=== PATIENT | male | born 1995 | race African-American/Black ===

== ENCOUNTER 2017-12-08 17:58 | Emergency (ER) | payer SELFPAY ==
--- NOTE | 2017-12-08 18:03 | ED Physician Documentation ---
Upper Extremity Injury - HISTORIAN Historian: patient - HPI Stated Complaint: bleeding hand Chief Complaint: Hand Injury Additional Information: Piece of dirty metal fell off refrigerator onto left hand and then he fell onto hand. 4th finger tingles. Unknown last tetanus. Onset: just prior to arrival Where: home - ROS CONST: no problems - PAST HX Past History: none, Rt handed Allergies/Adverse Reactions: Allergies Allergy/AdvReac Type Severity Reaction Status Date / Time No Known Allergies Allergy Verified 12/08/17 18:05 Home Medications: Ambulatory Orders Medication Instructions Recorded NK [NK] 12/08/17 - SOCIAL HX Smoking History: cigarettes (1.5 PPD) Alcohol Use: none (denies) Drug Use: marijuana - FAMILY HX Family History: other (adopted, unknown) - VITAL SIGNS Vital Signs: Vital Signs Temp Pulse Resp BP Pulse Ox 87 17 99 12/08/17 17:58 12/08/17 17:58 12/08/17 17:58 - REVIEWED ASSESSMENTS Nursing Assessment Reviewed: Yes Vitals Reviewed: Yes Progress - Progress Progress: 1833, discussed pt with Dr. Gordon Ratliff, who will see pt in the morning in his office. Pt received tetanus and 1 GM IM rocephin. Report Submission Date: Dec 08, 2017 6:44:23 PM CDT Patient Study Name: NAZARIO CAMPBELL Date: Dec 08, 2017 6:04:34 PM CDT Modality Type: DX Gender: M Description: UPPER EXTREMITY : 89 Institution: [facility] Physician: JENNIFER HILL - ER Left hand, 3 views HISTORY Injury. FINDINGS Comminuted fracture of the proximal third metacarpal is present. There is no dislocation or abnormal bone destruction. Remainder of the osseous, joint and soft tissue structures are normal. IMPRESSION Third metacarpal fracture. Electronically signed on Dec 08, 2017 6:44:23 PM CDT by: Allen Byrnes ED Results Lab/Radiology - Orders Orders: ED Orders Category Date Time Status Cleanse with NS and Chlorhexid 1T Care 12/08/17 18:06 Active HAND 3 VIEWS OR MORE [RAD] Stat Exams 12/08/17 Taken Diph,Pertuss(Acell),Tet Vac/Pf [Adacel] Med 12/08/17 18:01 Discontinued 0.5 ml IM .ONCE ONE Lidocaine 1% 5ml(IM or SUTURE) [Xylocaine] Med 12/08/17 18:21 Discontinued 50 mg IJ NOW ONE cefTRIAXone SODIUM [Rocephin] Med 12/08/17 18:21 Discontinued 1 gm IM NOW ONE Upper Extremity Injury Physic - Physical Exam General Appearance: alert, mild distress Hand: swelling (left hand with 2.5 cm diameter sub dermal bleed, 0.5 cm elevation, central puncture 3x4 mm. Full active ROM. No discoloration) Wrist: normal inspection (L radial pulse 2+) Elbow/Forearm: normal inspection, no evidence of injury Shoulder: no evidence of injury Neuro/Vascular/Tendon: no vascular compromise, motor nml, sensation nml Skin: warm,dry Head/ENT: nml inspection Neck/Back: nml inspection Resp/CVS: no resp. distress Discharge Clincal Impression: Open fracture metacarpal shaft Qualifiers: Encounter type: initial encounter Metacarpal bone: third Fracture alignment: displaced Laterality: left Qualified Code(s): S62.323B - Displaced fracture of shaft of third metacarpal bone, left hand, initial encounter for open fracture Referrals: Primary Doctor,No [Primary Care Provider] - 2 Days Additional Instructions: Call Dr. Gordon Ratliff's office first thing in the morning. He will see you in his office. His phone number is [phone]. The office address is [address] [place] [address]. It is extremely important that you see him. Condition: Fair Disposition: 01 HOME, SELF-CARE Decision to Admit: NO Decision Time: 18:33
[2017-12-08] MEDS: DIPH,PERTUSS(ACELL),TET VAC/PF 0.5 ML DISP.SYRIN IM ONE (18:16)
[2017-12-08] MEDS: cefTRIAXone SODIUM 1 GM VIAL IM ONE (19:01)
[2017-12-08] MEDS: Lidocaine 1% 5ml(IM or SUTURE)(PAIN CLINIC) IJ ONE (19:01)
[2017-12-08] MEDS: HYDROcodone /APAP 5/325 1 EACH TABLET PO ONE ×2 (19:02→19:20)
--- NOTE | 2017-12-08 19:29 | Diagnostic Imaging Report ---
[facility] [address] [facility] [address] [id number] Report Submission Date: Dec 08, 2017 6:44:23 PM CDT Patient Study Name: NAZARIO CAMPBELL Date: Dec 08, 2017 6:04:34 PM CDT Modality Type: DX Gender: M Description: UPPER EXTREMITY : 89 Institution: [facility] Physician: JENNIFER HILL - GAURAV Left hand, 3 views HISTORY Injury. FINDINGS Comminuted fracture of the proximal third metacarpal is present. There is no dislocation or abnormal bone destruction. Remainder of the osseous, joint and soft tissue structures are normal. IMPRESSION Third metacarpal fracture. Electronically signed on Dec 08, 2017 6:44:23 PM CDT by: Allen HI
[2017-12-08 23:03] VITALS: BP 131/84
== END 2017-12-08 19:30 | disposition home or self-care (01) ==
LOC: ED 17:58
DX: S62.323B Displaced fracture of shaft of third metacarpal bone, left hand, initial encounter for open fracture (principal); W23.1XXA Caught, crushed, jammed, or pinched between stationary objects, initial encounter; Y92.9 Unspecified place or not applicable; Y93.9 Activity, unspecified; Y99.9 Unspecified external cause status
CPT/HCPCS: 73130; 90715; A9270; J0696; 90471; 96372; 99284